=== PATIENT | female | born 1945 | race Caucasian/White ===

== ENCOUNTER 2016-10-26 06:35 | Emergency (ER) | payer OTHER ==
[~2016-10-26] VITALS: Ht 165.1 cm; Wt 82.1 kg
[2016-10-26 07:25] LABS: ABSOLUTE BASOPHIL COUNT 0 /CUMM (0.0-0.2); ABSOLUTE EOSINOPHIL COUNT 0.2 /CUMM (0.0-0.7); ABSOLUTE LYMPH COUNT 1.8 /CUMM (1.2-3.4); ABSOLUTE MONOCYTE COUNT 0.3 /CUMM (0.10-0.60); MEAN CORPUSCULAR HGB 29.5 PG (27.0-31.0); MEAN CORPUSCULAR HGB CONC 33.8 G/DL (33.0-37.0); MEAN CORPUSCULAR VOLUME 87.1 FL (81.0-99.0); MEAN PLATELET VOLUME 9.8 FL (7.4-10.4); PLATELET COUNT 228 /CUMM (130-400); RBC DISTRIBUTION WIDTH 13.5 % (11.5-14.5); RED BLOOD CELL CT 4.48 /CUMM (4.20-5.40); WHITE BLOOD CELL COUNT 4.4 /CUMM (4.8-10.8)
[2016-10-26 07:30] LABS: BASOPHIL % 0.8 % (0.0-2.0); EOSINOPHIL % 5.2 % (0-5)
--- NOTE | 2016-10-26 07:34 | ED GI/GU/ABDOMINAL COMPLAINT ---
History of Present Illness General Chief Complaint: Abdominal Pain/Flank Pain Stated Complaint: ABD PAIN Source: patient, old records Exam Limitations: no limitations Vital Signs & Intake/Output Vital Signs & Intake/Output Vital Signs Date Time Temp Pulse Resp B/P B/P Pulse O2 O2 Flow FiO2 Mean Ox Delivery Rate 10/27 951 96.6 61 18 186/86 100 Room Air 10/26 0715 97.2 68 18 136/76 97 Room Air Allergies Coded Allergies: peanut (UNKNOWN 10/26/16) shellfish derived (UNKNOWN 10/26/16) codeine (DOES NOT WORK 10/26/16) morphine (DOES NOT WORK 10/26/16) Reconcile Medications Levothyroxine Sodium 100 MCG TABLET 1 TAB PO DAILY AC THYROID (Reported) Rosuvastatin Calcium (Crestor) 5 MG TABLET 1 TAB PO DAILY CHOLESTEROL ( Reported) Triage Note: PER PT 2-3 MONTHS OF ABD DISCOMFORT WITH NO ASSOC NVD OR FEVERS, PT REPORTS HAS SEEN HER DR BUT INSURANCE WILL NOT PAY FOR CT SO CAME HERE. TIME TO FIGURE OUT WHATS WRONG. NOTHING MAKES PAIN WORSE OR BETTER. Triage Nurses Notes Reviewed? yes ? N Is pt currently ? No HPI: Patient presents for evaluation of the left upper quadrant and flank pain that began about 2 months ago. Then she can't state if it began abruptly or gradually. It is a fluctuating intermittent pain that "feels like a punch". The episodes can last for days. There is no change with movement or deep inspiration. Nothing seems to make the pain feel better either.The patient denies any associated vomiting diarrhea dysuria or prior trauma. She spoke with her primary care doctor yesterday who asked her to go to the emergency department for testing. She states she had work yesterday so is unable to do so. Past History Travel History Traveled to [place] past 21 day No Medical History Any Pertinent Medical History? see below for history Neurological: NONE EENT: NONE Cardiovascular: CHOL Respiratory: NONE Gastrointestinal: NONE Hepatic: NONE Renal: NONE Musculoskeletal: NONE Psychiatric: NONE Endocrine: HYPOTHYROID Surgical History Surgical History: non-contributory Psychosocial History What is your primary language [place]ian Tobacco Use: Never used Family History Hx Contributory? No Review of Systems Review of Systems Constitutional: Reports: no symptoms. EENTM: Reports: no symptoms. Respiratory: Reports: no symptoms. Cardiovascular: Reports: no symptoms. GI: Reports: see HPI. Genitourinary: Reports: no symptoms. Musculoskeletal: Reports: back pain. Skin: Reports: no symptoms. Neurological/Psychological: Reports: no symptoms. Hematologic/Endocrine: Reports: no symptoms. Immunologic/Allergic: Reports: no symptoms. All Other Systems: Reviewed and Negative Physical Exam Physical Exam Gastrointestinal: see below Comments: Gen.: Well-nourished, well-developed, no acute respiratory distress. Head: Normocephalic, atraumatic. Eyes: Normal inspection bilaterally Ears: Normal inspection bilaterally Nose: Normal inspection Throat/mouth : Moist mucosa Neck: Supple, full range of motion, no goiter Heart: Regular rate and rhythm, no murmurs rubs or gallops Lungs: Clear to auscultation bilaterally with normal air entry Chest: Nontender Back: Normal range of motion, no CVAT Abdomen: Soft, slight epigastric tenderness without rebound or guarding, nondistended, normal bowel sounds no splenomegaly Extremities: Normal range of motion grossly, equal radial pulses, no cyanosis clubbing or edema Neurologic: Cranial nerves grossly intact, speech is clear Skin: warm and dry Psychiatric: Calm, cooperative, no apparent delusions or hallucinations Core Measures ACS in differential dx? No Severe Sepsis Present: No Septic Shock Present: No Progress Differential Diagnosis: PUD/GERD, splenomegaly Plan of Care: Orders Procedure Date/time Status TOTAL TRIODOTHYROXINE 10/26 0650 Complete FREE T4 10/26 0550 Complete URINALYSIS 10/26 646 Complete TSH REFLEX 10/26 646 Complete TROPONIN LEVEL 10/26 646 Complete LIPASE 10/26 646 Complete LACTIC ACID 10/26 646 Complete COMPREHENSIVE METABOLIC PANEL 10/26 646 Complete CBC WITHOUT DIFFERENTIAL 10/26 646 Complete AMYLASE 10/26 646 Complete EKG 10/26 636 Active Laboratory Tests 10/26/16 1000: Urine Color YEL, Urine Clarity CLEAR, Urine pH 7.0, Ur Specific [place] <= 1.005 , Urine Protein NEG, Urine Ketones NEG, Urine Nitrite NEG, Urine Bilirubin NEG, Urine Urobilinogen 0.2, Ur Leukocyte Esterase NEG, Ur Microscopic EXAM NOT REQUIRED, Urine Hemoglobin NEG, Urine Glucose NEG 10/26/16 0947: Lactic Acid Cancelled 10/26/16 0650: Anion Gap 10, Estimated GFR > 60, BUN/Creatinine Ratio 28.6 H, Glucose 121 H, Lactic Acid 0.9, Calcium 9.9, Total Bilirubin 0.6, AST 24, ALT 40, Alkaline Phosphatase 77, Troponin I < 0.01, Total Protein 6.8, Albumin 4.5, Globulin 2.3, Albumin/Globulin Ratio 2.0, Amylase 56, Lipase 187, Free T4 0.87, Total T3 1.29, TSH &T3 &Free T4 Intrp 5.950 H, CBC w Diff NO MAN DIFF REQ, RBC 4.48, MCV 87.1, MCH 29.5, RDW 13.5, MPV 9.8, Gran % 46.0, Lymphocytes % 40.8, Monocytes % 7.2, Eosinophils % 5.2 H, Basophils % 0.8, Absolute Granulocytes 2.0, Absolute Lymphocytes 1.8, Absolute Monocytes 0.3, Absolute Eosinophils 0.2, Absolute Basophils 0, PUBS MCHC 33.8 Initial ED EKG: NSR, no ST T wave changes Comments: 10/26/2016 11:22:52 AM I have updated and Stefany on her CAT scan report. She was asleep upon my arrival to the room. The cause of her pain is unclear at this point. I have paged Dr. GRIGSBY. 10/26/2016 11:28:45 AM I have discussed and agrees case with Dr. GRIGSBY recommends meloxicam and office follow-up. Departure Departure Disposition: HOME OR SELF CARE Condition: Stable Clinical Impression Primary Impression: Flank pain Secondary Impressions: Abdominal pain Qualifiers: Abdominal location: left upper quadrant Qualified Code: R10.12 - Left upper quadrant pain Ventral hernia Qualifiers: Obstruction and gangrene presence: without obstruction or gangrene Qualified Code: K43.9 - Ventral hernia without obstruction or gangrene Referrals: CALISTA MARROQUIN,MYCHAL Gonzalez (PCP/Family) Additional Instructions: Meloxicam as needed for pain. Follow-up with Dr. GRIGSBY on Saturday for reevaluation. Since the cause of your pain is unclear at this point please return to the emergency department immediately if any concerns or sudden worsening. Please note that there might be incidental findings in your evaluation that are unrelated to the current emergency department visit. Please notify your primary care doctor about this emergency department visit in order to obtain and review all of the testing performed so that these incidental findings can be monitored as needed. If you had an x-ray performed, please understand that some fractures may not be seen on the initial set of x-rays. If your symptoms persist you might need a repeat set of x-rays to check for such a fracture. If you had a laceration evaluated, please understand that foreign bodies such as glass or wood may not be visible to the naked eye or on plain x-rays. If the wound becomes red, swollen, increasingly more painful or if there is any drainage from the wound, please have it reevaluated by a physician for the possibility of a retained foreign body. Thank you for choosing the [facility] Emergency Department for your care. It was a pleasure to serve you today. Bhargav Cancino M.D. [facility] Departure Forms: Customer Survey General Discharge Information Prescriptions: Current Visit Scripts Meloxicam 1 TAB PO DAILY #15 TAB
[2016-10-26] MEDS ORDERED: LEVOTHYROXINE100 MC1 PO (10:01)
[2016-10-26] MEDS ORDERED: CRESTOR5 M1 PO (10:01)
[2016-10-26] MEDS ORDERED: MELOXICAM15 M1 PO (11:38)
[2016-10-26 11:43] VITALS: BP 146/71
== END 2016-10-26 11:51 ==
LOC: ERH 06:35
PROVIDERS: Emergency Medicine
DX: K43.9 Ventral hernia without obstruction or gangrene (principal)
CPT/HCPCS: 81003; 93005; 93010